=== PATIENT | male | born 1995 | race Caucasian/White ===

== ENCOUNTER 2017-05-26 11:28 | Emergency (ER) | payer OTHER ==
[~2017-05-26] VITALS: Ht 177.8 cm; Wt 68.8 kg
[2017-05-26 13:09] LABS: INTERNAL CONTROL VALID? YES; MONOSPOT (MONONUCLEOSIS SEROL) POSITIVE
[2017-05-26] MEDS ORDERED: TYLENOL WITH C1 EACH PO (13:18)
[2017-05-26] MEDS ORDERED: MEDROL DOSEPAK4 MG PO (13:18)
[2017-05-26 13:31] VITALS: BP 129/81
== END 2017-05-26 13:33 | disposition home or self-care (01) ==
LOC: EME 11:28
PROVIDERS: Physician Assistant
DX: B27.90 Infectious mononucleosis, unspecified without complication (principal); F17.200 Nicotine dependence, unspecified, uncomplicated
CPT/HCPCS: 86308; 87651 90; 99281; 99283; J7512